=== PATIENT | female | born 1985 | race African-American/Black ===

== ENCOUNTER 2019-04-13 07:29 | Emergency (ER) | payer BC ==
--- NOTE | 2019-04-13 08:03 | EDPHYS ---
Physician Documentation [facility] Name: Boy Roque Age: 33 yrs Sex: Female : 1985 Arrival Date: 04/13/2019 Time: 07:32 Bed Waiting Private MD: ED Physician Michael Escalante HPI: 04/13 08:07 This 33 yrs old Black Female presents to ER via Ambulatory with complaints of Insect kb Bite, Allergic Reaction. 08:09 The patient presents with itching, localized swelling, redness of skin. Onset: The kb symptoms/episode began/occurred last night. Associated signs and symptoms: Pertinent positives: swelling. Possible causes: unknown insect. At home the patient or guardian has treated the symptoms with Benadryl. Severity of symptoms: At their worst the symptoms were mild in the emergency department the symptoms are unchanged. The patient has not experienced similar symptoms in the past. The patient has not recently seen a physician. Pt reports she was bit by an insect last night and had a lot of itching to area. Today the bites are more red and swollen. "I'm having an allergic reaction". Historical: - Allergies: 08:04 No Known Allergies; hb - Home Meds: 08:04 levothyroxine 112 mcg tab 1 tab once daily [Active]; hb - PMHx: 08:04 Hypertension; hb - PSHx: 08:04 None; hb - Immunization history:: Adult Immunizations up to date. - Social history:: Smoking status: Patient uses tobacco products, denies chronic smoking, but will smoke occasionally. - Ebola Screening: : No symptoms or risks identified at this time. ROS: 08:07 Constitutional: Negative for fever, chills, and weight loss, ENT: Negative for injury, kb pain, and discharge, Neck: Negative for injury, pain, and swelling, Cardiovascular: Negative for chest pain, palpitations, and edema, Respiratory: Negative for shortness of breath, cough, wheezing, and pleuritic chest pain, Abdomen/GI: Negative for abdominal pain, nausea, vomiting, diarrhea, and constipation, MS/Extremity: Negative for injury and deformity, Neuro: Negative for headache, weakness, numbness, tingling, and seizure. 08:07 Skin: Positive for erythema, swelling. Exam: 08:07 Constitutional: This is a well developed, well nourished patient who is awake, alert, kb and in no acute distress. Head/Face: Normocephalic, atraumatic. ENT: Nares patent. No nasal discharge, no septal abnormalities noted. Tympanic membranes are normal and external auditory canals are clear. Oropharynx with no redness, swelling, or masses, exudates, or evidence of obstruction, uvula midline. Mucous membranes moist. Neck: Trachea midline, no thyromegaly or masses palpated, and no cervical lymphadenopathy. Supple, full range of motion without nuchal rigidity, or vertebral point tenderness. No Meningismus. Chest/axilla: Normal chest wall appearance and motion. Nontender with no deformity. No lesions are appreciated. Cardiovascular: Regular rate and rhythm with a normal S1 and S2. No gallops, murmurs, or rubs. Normal PMI, no JVD. No pulse deficits. Respiratory: Lungs have equal breath sounds bilaterally, clear to auscultation and percussion. No rales, rhonchi or wheezes noted. No increased work of breathing, no retractions or nasal flaring. Abdomen/GI: Soft, non-tender, with normal bowel sounds. No distension or tympany. No guarding or rebound. No evidence of tenderness throughout. MS/ Extremity: Pulses equal, no cyanosis. Neurovascular intact. Full, normal range of motion. Neuro: Awake and alert, GCS 15, oriented to person, place, time, and situation. Cranial nerves II-XII grossly intact. Motor strength 5/5 in all extremities. Sensory grossly intact. Cerebellar exam normal. Normal gait. 08:07 Skin: multiple insect bites with inflammation to right upper lateral thigh. Vital Signs: 08:04 BP 136 / 89; Pulse 63; Resp 20; Temp 97.7; Pulse Ox 100% ; Pain 0/10; hb MDM: 08:01 Patient medically screened. kb 08:07 Data reviewed: vital signs, nurses notes. Data interpreted: Pulse oximetry: on room air kb is 100 %. Interpretation: normal. Counseling: I had a detailed discussion with the patient and/or guardian regarding: the historical points, exam findings, and any diagnostic results supporting the discharge/admit diagnosis, the need for outpatient follow up, a family practitioner, to return to the emergency department if symptoms worsen or persist or if there are any questions or concerns that arise at home. Administered Medications: 08:16 Drug: Pepcid 20 mg Route: PO; aa5 08:16 Follow up: Response: No adverse reaction; Medication administered at discharge. aa 08:16 Drug: predniSONE 40 mg Route: PO; aa 08:16 Follow up: Response: Medication administered at discharge. aa 08:16 Follow up: Response: No adverse reaction aa5 Disposition: 10:48 Co-signature as Attending Physician, Michael Escalante MD I agree with the assessment and samantha plan of care. Disposition: 04/13/19 08:02 Discharged to Home. Impression: Bitten or stung by nonvenomous insect and other nonvenomous arthropods. - Condition is Stable. - Discharge Instructions: Insect Bite, [id number]. - Prescriptions for Pepcid 20 mg Oral Tablet - take 1 tablet by ORAL route every 12 hours for 5 days; 10 tablet. Prednisone 20 mg Oral Tablet - take 1 tablet by ORAL route once daily for 5 days; 5 tablet. - Medication Reconciliation Form, Thank You Letter, Antibiotic Education, Prescription Opioid Use, Work release form form. - Follow up: Emergency Department; When: As needed; Reason: Worsening of condition. Follow up: Private Physician; When: 2 - 3 days; Reason: Recheck today's complaints, Continuance of care, Re-evaluation by your physician. Signatures: Lesley Moreira, FURNACE DOOR TENDER-C FURNACE DOOR TENDER-Michael Pepe MD MD cha Calderon, Audri, RN RN aa5 Leanne Parekh RN RN Corrections: (The following items were deleted from the chart) 08:17 08:02 04/13/2019 08:02 Discharged to Home. Impression: Bitten or stung by nonvenomous jessica insect and other nonvenomous arthropods. Condition is Stable. Forms are Medication Reconciliation Form, Thank You Letter, Antibiotic Education, Prescription Opioid Use. Follow up: Emergency Department; When: As needed; Reason: Worsening of condition. Follow up: Private Physician; When: 2 - 3 days; Reason: Recheck today's complaints, Continuance of care, Re-evaluation by your physician. kb
[2019-04-13] MEDS ORDERED: predniSONE 20 MG TAB ONE (08:06)
[2019-04-13] MEDS ORDERED: FAMOTIDINE 20 MG TAB ONE (08:06)
--- NOTE | 2019-04-13 08:18 | ER ---
Nurse's Notes [facility] Name: Boy Roque Age: 33 yrs Sex: Female : 1985 Arrival Date: 04/13/2019 Time: 07:32 Bed Waiting Private MD: Diagnosis: Bitten or stung by nonvenomous insect and other nonvenomous arthropods Presentation: 04/13 08:03 Presenting complaint: Insect bites to right thigh. Transition of care: patient was not hb received from another setting of care. Onset of symptoms was April 13, 2019. Risk Assessment: Do you want to hurt yourself or someone else? Patient reports no desire to harm self or others. Initial Sepsis Screen: Does the patient meet any 2 criteria? No. Patient's initial sepsis screen is negative. Does the patient have a suspected source of infection? No. Patient's initial sepsis screen is negative. Care prior to arrival: None. 08:03 Method Of Arrival: Ambulatory hb 08:03 Acuity: RIVAS 4 hb Historical: - Allergies: 08:04 No Known Allergies; hb - Home Meds: 08:04 levothyroxine 112 mcg tab 1 tab once daily [Active]; hb - PMHx: 08:04 Hypertension; hb - PSHx: 08:04 None; hb - Immunization history:: Adult Immunizations up to date. - Social history:: Smoking status: Patient uses tobacco products, denies chronic smoking, but will smoke occasionally. - Ebola Screening: : No symptoms or risks identified at this time. Screenin:10 Abuse screen: Denies threats or abuse. Nutritional screening: No deficits noted. aa5 Tuberculosis screening: No symptoms or risk factors identified. Fall Risk None identified. Assessment: 08:10 General: Appears comfortable, Behavior is calm, cooperative. Pain: Denies pain. Neuro: aa5 Level of Consciousness is awake, alert, obeys commands, Oriented to person, place, time, situation. 08:10 Cardiovascular: Heart tones S1 S2 present Rhythm is regular. Respiratory: Airway is aa5 patent Respiratory effort is even, unlabored, Respiratory pattern is regular, symmetrical, Breath sounds are clear bilaterally. GI: No signs and/or symptoms were reported involving the gastrointestinal system. : No signs and/or symptoms were reported regarding the genitourinary system. 08:10 EENT: No signs and/or symptoms were reported regarding the EENT system. Derm: Skin is aa5 dry, Skin is normal, Skin temperature is warm Multiple insect bites noted to right thigh. Musculoskeletal: Range of motion: intact in all extremities. Vital Signs: 08:04 BP 136 / 89; Pulse 63; Resp 20; Temp 97.7; Pulse Ox 100% ; Pain 0/10; hb ED Course: 07:32 Patient arrived in ED. as 08:01 Lesley Moreira [facility]-C [facility]. kb 08:01 Michael Escalante MD is Attending Physician. kb 08:04 Triage completed. hb 08:04 Arm band placed on. hb 08:10 Patient has correct armband on for positive identification. aa5 08:16 No provider procedures requiring assistance completed. Patient did not have IV access aa5 during this emergency room visit. 08:17 Neli Mccracken, RN is Primary Nurse. aa5 Administered Medications: 08:16 Drug: Pepcid 20 mg Route: PO; aa5 08:16 Follow up: Response: No adverse reaction; Medication administered at discharge. aa5 08:16 Drug: predniSONE 40 mg Route: PO; aa5 08:16 Follow up: Response: Medication administered at discharge. aa5 08:16 Follow up: Response: No adverse reaction aa5 Outcome: 08:02 Discharge ordered by MD. kb 08:16 Discharged to home ambulatory. aa5 08:16 Condition: stable 08:16 Discharge instructions given to patient, Instructed on discharge instructions, follow up and referral plans. medication usage, Demonstrated understanding of instructions, follow-up care, medications, Prescriptions given X 2. 08:17 Patient left the ED. aa5 Signatures: Lesley Moreira FNP-C FNP-Griselda Joe as Neli Mccracken, RN RN aa5 Leanne Parekh, ANNALEE RN
[2019-04-13 09:25] VITALS: BP 136/89; TEMP 97.7; O2SAT 100
== END 2019-04-13 08:17 | disposition home or self-care (01) ==
LOC: ER 07:29
DX: S70.361A Insect bite (nonvenomous), right thigh, initial encounter (principal)
CPT/HCPCS: 99283; J7512

== ENCOUNTER 2021-10-22 07:18 | Emergency (ER) | payer BC ==
--- OUTSIDE RECORDS SUMMARY | 2021-10-22 07:20 | XMS REPORT | Continuity of Care Document ---
:1985 Author Organization [facility] t Address [address] [place] [address] Dr. Crawley [address] [place] [id number] Care Team Providers Name Role Phone Unavailable Unavailable Unavailable Problems This patient has no known problems. Allergies, Adverse Reactions, Alerts This patient has no known allergies or adverse reactions. Medications This patient has no known medications. Procedures This patient has no known procedures. Encounters Start End Encounter Admission Attending Care Care Encounter Source Date/Time Date/Time Type Type Clinicians Facility Department ID 2019-01-21 2019-01-[address] 12:26:00 06:02:00 Results This patient has no known results.
[2021-10-22] MEDS ORDERED: IBUPROFEN 400 MG TAB ONE (07:43)
[2021-10-22] MEDS ORDERED: IBUPROFEN 200 MG TAB PO ONE (07:43)
[2021-10-22 07:45] LABS: Urine Blood Negative (Negative); Urine Glucose Negative (Negative); Urine Protein Negative (Negative); Urine Specific Gravity >=1.030 (1.005-1.030)
--- NOTE | 2021-10-22 08:09 | RAD REPORT ---
EXAM DESCRIPTION: CT - C Spine Wo Con - 10/22/2021 7:49 am CLINICAL HISTORY: Neck pain following trauma, radiculopathy COMPARISON: None. TECHNIQUE: Axial 2 mm thick images of the cervical spine were obtained with sagittal and coronal rec onstruction images generated and reviewed. All CT scans are performed using dose optimization technique as appropriate and may include automated exposure control or mA/KV adjustment according to patient size. FINDINGS: Cervical body height and alignment are normal. No disk space narrowing. No fracture or acu te bony abnormality. Facet joint alignment is normal. No paraspinal mass or hematoma. No gross evidence for a large disc herniation. Central canal detail is inherently limited on CT imagi ng. IMPRESSION: Negative CT cervical spine examination. CT imaging has inherent limitation in evaluating disc herniation, cord abnormality or other central c anal processes. Follow-up outpatient MRI imaging of the cervical spine could be performed if there ar e concerns for central canal process.
--- NOTE | 2021-10-22 08:29 | ER ---
Nurse's Notes [facility] Name: Boy Roque Age: 35 yrs Sex: Female : 1985 Arrival Date: 10/22/2021 Time: 07:21 Bed 23 Private MD: Diagnosis: Strain of muscle, fascia and tendon at neck level, initial encounter Presentation: 10/22 07:27 Chief complaint: Patient states: Hit top of head on Tuesday. Started having neck pain, ll1 worse since last night. Very stiff and painful. No LOC, gait steady. Coronavirus screen: Vaccine status: Patient reports receiving the 2nd dose of the covid vaccine. Client denies travel out of the [place] in the last 14 days. At this time, the client does not indicate any symptoms associated with coronavirus-19. Ebola Screen: Patient denies travel to an Ebola-affected area in the 21 days before illness onset. Initial Sepsis Screen: Does the patient meet any 2 criteria? No. Patient's initial sepsis screen is negative. Does the patient have a suspected source of infection? Yes: Bone or joint infection. Risk Assessment: Do you want to hurt yourself or someone else? Patient reports no desire to harm self or others. Onset of symptoms was October 16, 2021. 07:27 Method Of Arrival: Ambulatory ll1 07:27 Acuity: RIVAS 4 ll1 Triage Assessment: 07:30 General: Appears uncomfortable, Behavior is cooperative, appropriate for age. Pain: ll1 Complains of pain in neck Quality of pain is described as aching, Aggravated by increased activity. Musculoskeletal: Reports pain in neck. Injury Description: Head injury Bruise. Historical: - Allergies: 07:21 No Known Allergies; ll1 - PMHx: 07:21 Hypertension; ll1 - Immunization history:: Client reports receiving the 2nd dose of the Covid vaccine. - Social history:: Smoking status: Patient reports the use of cigarette tobacco products, cigars. - Family history:: not pertinent. Screenin:30 Abuse screen: Denies threats or abuse. Nutritional screening: No deficits noted. ll1 Tuberculosis screening: No symptoms or risk factors identified. Fall Risk Total Rodriguez Fall Scale indicates No Risk (0-24 pts). Assessment: 09:10 General: Appears in no apparent distress. comfortable, slender, well groomed, Behavior ph is calm, cooperative, appropriate for age. Pain: Complains of pain in neck and bilateral shoulders. Neuro: Level of Consciousness is awake, alert, obeys commands, Oriented to person, place, time, situation, Denies blurred vision dizziness, headache. Cardiovascular: No deficits noted. Derm: Skin is intact, is healthy with good turgor, Skin is pink, warm \T\ dry. Musculoskeletal: Circulation, motion, and sensation intact. Range of motion: intact in all extremities. Vital Signs: 07:27 BP 145 / 90; Pulse 65; Resp 16; Temp 98.1; Pulse Ox 100% ; Weight 60.78 kg; Height 5 ll1 ft. 4 in. (162.56 cm); Pain 8/10; 09:11 BP 132 / 78; Pulse 67; Resp 18; Temp 98.0; Pulse Ox 99% on R/A; ph 07:27 Body Mass Index 23.00 (60.78 kg, 162.56 cm) ll1 ED Course: 07:21 Patient arrived in ED. mr 07:21 Arm band placed on. ll1 07:24 Michael Escalante MD is Attending Physician. samantha 07:27 Patient placed in an exam room, on a stretcher. ll1 07:30 Triage completed. ll1 07:30 Patient has correct armband on for positive identification. Bed in low position. Call ll1 light in reach. Side rails up X 1. Cardiac monitoring not applicable on this patient. 07:32 Siri Boss, RN is Primary Nurse. ph 07:50 CT C Spine In Process Unspecified. EDMS 08:28 Brent Barros MD is Referral Physician. samantha 09:10 No provider procedures requiring assistance completed. Patient did not have IV access ph during this emergency room visit. Administered Medications: 07:45 Drug: Motrin (ibuprofen) 600 mg Route: PO; ph 09:10 Follow up: Response: No adverse reaction ph 09:05 Drug: Flexeril (cyclobenzaprine) 10 mg Route: PO; ph 09:10 Follow up: Response: No adverse reaction ph 09:05 Drug: predniSONE 40 mg Route: PO; ph 09:09 Follow up: Response: No adverse reaction ph Outcome: 08:28 Discharge ordered by . samantha 09:10 Discharged to home ambulatory, with significant other. ph 09:10 Condition: good 09:10 Discharge instructions given to patient, Instructed on discharge instructions, follow up and referral plans. medication usage, Demonstrated understanding of instructions, follow-up care, medications, Prescriptions given X 3. 09:11 Patient left the ED. ph Signatures: Dispatcher [employer] EDMichael Jaimes MD MD cha Rivera, Mary mr Siri Boss RN RN ph Lewis, Lynsay, RN RN ll1
--- NOTE | 2021-10-22 08:29 | EDPHYS ---
Physician Documentation [facility] Name: Boy Roque Age: 35 yrs Sex: Female : 1985 Arrival Date: 10/22/2021 Time: 07:21 Bed 23 Private MD: ED Physician Michael Escalante HPI: 10/22 07:53 This 35 yrs old Black Female presents to ER via Ambulatory with complaints of Neck Pain.samantha 07:53 The patient's problem is reported as neck pain. Onset: The symptoms/episode samantha began/occurred 7 day(s) ago. Duration: This was a single incident, The episode is continuous. Context: occurred at home. The symptoms are alleviated by rest, The symptoms are aggravated by standing, walking. Associated signs and symptoms: The patient has no apparent associated signs or symptoms. Severity of symptoms: At their worst the symptoms were moderate in the emergency department the symptoms are unchanged. Patient's baseline: Neuro: alert and fully oriented. The patient has not experienced similar symptoms in the past. Historical: - Allergies: 07:21 No Known Allergies; ll1 - PMHx: 07:21 Hypertension; ll1 - Immunization history:: Client reports receiving the 2nd dose of the Covid vaccine. - Social history:: Smoking status: Patient reports the use of cigarette tobacco products, cigars. - Family history:: not pertinent. ROS: 07:53 Constitutional: Negative for fever, chills, and weight loss, Eyes: Negative for injury, samantha pain, redness, and discharge, ENT: Negative for injury, pain, and discharge, Neck: Negative for injury, pain, and swelling, Cardiovascular: Negative for chest pain, palpitations, and edema, Respiratory: Negative for shortness of breath, cough, wheezing, and pleuritic chest pain, Abdomen/GI: Negative for abdominal pain, nausea, vomiting, diarrhea, and constipation, Back: Negative for injury and pain, : Negative for injury, bleeding, discharge, and swelling, MS/Extremity: Negative for injury and deformity, Skin: Negative for injury, rash, and discoloration, Neuro: Negative for headache, weakness, numbness, tingling, and seizure, Psych: Negative for depression, anxiety, suicide ideation, homicidal ideation, and hallucinations, Allergy/Immunology: Negative for hives, rash, and allergies, Endocrine: Negative for neck swelling, polydipsia, polyuria, polyphagia, and marked weight changes, Hematologic/Lymphatic: Negative for swollen nodes, abnormal bleeding, and unusual bruising. Exam: 07:53 Constitutional: This is a well developed, well nourished patient who is awake, alert, samantha and in no acute distress. Head/Face: Normocephalic, atraumatic. Eyes: Pupils equal round and reactive to light, extra-ocular motions intact. Lids and lashes normal. Conjunctiva and sclera are non-icteric and not injected. Cornea within normal limits. Periorbital areas with no swelling, redness, or edema. ENT: Nares patent. No nasal discharge, no septal abnormalities noted. Tympanic membranes are normal and external auditory canals are clear. Oropharynx with no redness, swelling, or masses, exudates, or evidence of obstruction, uvula midline. Mucous membranes moist. Chest/axilla: Normal chest wall appearance and motion. Nontender with no deformity. No lesions are appreciated. Cardiovascular: Regular rate and rhythm with a normal S1 and S2. No gallops, murmurs, or rubs. Normal PMI, no JVD. No pulse deficits. Respiratory: Lungs have equal breath sounds bilaterally, clear to auscultation and percussion. No rales, rhonchi or wheezes noted. No increased work of breathing, no retractions or nasal flaring. Abdomen/GI: Soft, non-tender, with normal bowel sounds. No distension or tympany. No guarding or rebound. No evidence of tenderness throughout. Back: No spinal tenderness. No costovertebral tenderness. Full range of motion. Skin: Warm, dry with normal turgor. Normal color with no rashes, no lesions, and no evidence of cellulitis. MS/ Extremity: Pulses equal, no cyanosis. Neurovascular intact. Full, normal range of motion. Neuro: Awake and alert, GCS 15, oriented to person, place, time, and situation. Cranial nerves II-XII grossly intact. Motor strength 5/5 in all extremities. Sensory grossly intact. Cerebellar exam normal. Normal gait. Psych: Awake, alert, with orientation to person, place and time. Behavior, mood, and affect are within normal limits. 07:53 Neck: External neck: is normal, no acute changes, C-spine: appears grossly normal, no acute changes, Thyroid: appears normal, no acute changes, Trachea: is midline with no obvious abnormalities, no acute changes, ROM/movement: limited range of motion, that is mild, in any direction, Meningeal signs: are not present, Kernig's sign is negative, Brudzinski's sign is negative, nuchal rigidity, is not appreciated, Lymph nodes: no appreciated lymphadenopathy. Vital Signs: 07:27 BP 145 / 90; Pulse 65; Resp 16; Temp 98.1; Pulse Ox 100% ; Weight 60.78 kg; Height 5 ll1 ft. 4 in. (162.56 cm); Pain 8/10; 09:11 BP 132 / 78; Pulse 67; Resp 18; Temp 98.0; Pulse Ox 99% on R/A; ph 07:27 Body Mass Index 23.00 (60.78 kg, 162.56 cm) ll1 MDM: 07:26 Patient medically screened. samantha 07:55 Data reviewed: vital signs, nurses notes, lab test result(s), radiologic studies, CT samantha scan. Data interpreted: panel monitor: not applicable for this patient encounter. rate is 65 beats/min. Test interpretation: by ED physician or midlevel provider:. Counseling: I had a detailed discussion with the patient and/or guardian regarding: the historical points, exam findings, and any diagnostic results supporting the discharge/admit diagnosis, lab results, radiology results, the need for outpatient follow up, for definitive care, a family practitioner, a neurologist. 10/22 07:46 Order name: Urine Dipstick-Ancillary; Complete Time: 08:25 EDMS 10/22 07:50 Order name: Urine --Ancillary (enter results) eb 10/22 07:34 Order name: CT C Spine; Complete Time: 08:25 samantha 10/22 07:34 Order name: Urine Dipstick-Ancillary (obtain specimen); Complete Time: 07:54 samantha 10/22 07:34 Order name: Urine Test (obtain specimen); Complete Time: 07:54 samantha Administered Medications: 07:45 Drug: Motrin (ibuprofen) 600 mg Route: PO; ph 09:10 Follow up: Response: No adverse reaction ph 09:05 Drug: Flexeril (cyclobenzaprine) 10 mg Route: PO; ph 09:10 Follow up: Response: No adverse reaction ph 09:05 Drug: predniSONE 40 mg Route: PO; ph 09:09 Follow up: Response: No adverse reaction ph Disposition Summary: 10/22/21 08:28 Discharge Ordered Location: Home samantha Problem: new samantha Symptoms: have improved samantha Condition: Stable samantha Diagnosis - Strain of muscle, fascia and tendon at neck level, initial encounter samantha Followup: samantha - With: Private Physician - When: 2 - 3 days - Reason: Recheck today's complaints, Continuance of care, Re-evaluation by your physician Followup: samantha - With: Brent Barros MD - When: 2 - 3 days - Reason: Recheck today's complaints, Re-evaluation by your physician Discharge Instructions: - Discharge Summary Sheet samantha - Muscle Strain samantha - Neck Contusion samantha - Muscle Strain, [id number] samantha - Neck Contusion, [id number] samantha Forms: - Medication Reconciliation Form samantha - Thank You Letter samantha - Antibiotic Education samantha - Prescription Opioid Use samantha - Work release form eb - Family Work Release ph Prescriptions: - Medrol (Tevin) 4 mg Oral Tablets, Dose Pack - take 1 tablet by ORAL route as directed - follow package instructions; 1 samantha packet; Refills: 0, Product Selection Permitted - Motrin IB 200 mg Oral Tablet - take 3 tablet by ORAL route every 6 hours As needed as needed with food; 40 samantha tablet; Refills: 0, Product Selection Permitted - Cyclobenzaprine 5 mg Oral Tablet - take 1 tablet by ORAL route 3 times per day As needed; 15 tablet; Refills: 0, samantha Product Selection Permitted Signatures: Dispatcher [employer] Michael Magallanes MD MD cha Hall, Patricia RN RN Jacqueline Yen RN RN ll1
[2021-10-22] MEDS ORDERED: CYCLOBENZAPRINE 10 MG TAB ONE (09:04)
[2021-10-22] MEDS ORDERED: predniSONE 20 MG TAB ONE (09:04)
[2021-10-22 12:01] VITALS: BP 132/78; TEMP 98; O2SAT 99
== END 2021-10-22 09:11 | disposition home or self-care (01) ==
LOC: ER 07:18
DX: S16.1XXA Strain of muscle, fascia and tendon at neck level, initial encounter (principal); I10 Essential (primary) hypertension; F17.290 Nicotine dependence, other tobacco product, uncomplicated
CPT/HCPCS: 81025; 81003; 72125; 99283; J7512

== ENCOUNTER 2022-03-03 10:01 | Emergency (ER) | payer BC ==
--- OUTSIDE RECORDS SUMMARY | 2022-03-03 10:04 | XMS REPORT | Continuity of Care Document ---
:1985 Author Organization [facility] t Address [address] [place] [address] Dr. Crawley [address] [place] [id number] Care Team Providers Name Role Phone Unavailable [...] Clinicians Facility Department ID 2019-01-21 2019-01-[address] 12:26:00 06:02:00 Results This patient has no known results.
[2022-03-03] MEDS ORDERED: ONDANSETRON 4 MG/2 ML VIAL ONE (12:41)
[2022-03-03] MEDS ORDERED: FAMOTIDINE 20 MG/2 ML VIAL IV ONE (12:42)
[2022-03-03] MEDS ORDERED: NA CHLORIDE 0.9% 1,000 ML ONE (12:42)
[2022-03-03 12:44] LABS: Absolute Lymphocytes (CBC) 0.3 K/uL (0.7-4.9); Hematocrit 36.9 % (36.0-45.0); MCV 91.6 fL (80-100); MPV 9.4 fL (7.6-11.3); RBC Red Blood Cell Count 4.03 M/uL (3.86-4.86)
[2022-03-03 13:15] LABS: Albumin 3.5 g/dL (3.4-5.0); Bilirubin Total 0.5 mg/dL (0.2-1.0); Potassium 3.4 mmol/L (3.5-5.1); Protein, Total 7.3 g/dL (6.4-8.2)
[2022-03-03 13:32] LABS: Blood Morphology Comment NOT SEEN (NOT SEEN); Platelet Estimate ADEQ; White Blood Cell Scan OK (OK)
[2022-03-03 13:34] LABS: Urine Blood Negative (Negative); Urine Glucose Negative (Negative); Urine Protein Negative (Negative); Urine pH 5.5 (5.0-7.0)
--- NOTE | 2022-03-03 14:02 | RAD REPORT ---
EXAM DESCRIPTION: CTAbdomen Pelvis W Contrast - 03/03/2022 1:47 pm CLINICAL HISTORY: Abdominal pain, acute, nonlocalized COMPARISON: No comparisons TECHNIQUE: CT of the abdomen and pelvis was performed. All CT scans are performed using dose optimization technique as appropriate and may include automated exposure control or mA/KV adjustment according to patient size. FINDINGS: Lower chest: No acute abnormality. Liver: No acute abnormality or suspicious lesions. Biliary: No biliary ductal dilatation. Stomach: No significant focal abnormality. Duodenum: No significant focal abnormality. Pancreas: No significant abnormality. Spleen: No significant abnormality. Adrenal: No suspicious lesions. Kidney/ureter: No hydronephrosis. No renal calculi. Left lower pole renal cyst. Retroperitoneum: No retroperitoneal adenopathy. Vascular: No aneurysm. Bowel: No significant focal abnormality. Normal appendix. Peritoneum: Pelvic free fluid. Bladder: Grossly unremarkable. Reproductive: No adnexal masses. Bones: No acute fracture. Other: n/a IMPRESSION: No acute intra-abdominal or pelvic finding. The appendix is within normal limits. No uri nary tract calculi. Pelvic free fluid which is likely physiologic.
--- NOTE | 2022-03-03 14:08 | ER ---
Nurse's Notes [facility] Name: Boy Roque Age: 36 yrs Sex: Female : 1985 Arrival Date: 03/03/2022 Time: 10:02 Bed 12 Private MD: Diagnosis: Abdominal pain, Generalized;Upper abdominal pain, unspecified;Shortness of breath Presentation: 03/03 10:18 Chief complaint: Patient states: she is having severe abdominal pain and feels like she ap3 is having a difficult time breathing. patient also has dry cough that began yesterday. patient also complains of nausea. Coronavirus screen: At this time, the client does not indicate any symptoms associated with coronavirus-19. Ebola Screen: No symptoms or risks identified at this time. Initial Sepsis Screen:. Risk Assessment: Do you want to hurt yourself or someone else? Patient reports no desire to harm self or others. Onset of symptoms was March 02, 2022. 10:18 Method Of Arrival: Ambulatory ap3 10:20 Initial Sepsis Screen: Does the patient meet any 2 criteria? No. Patient's initial ap3 sepsis screen is negative. Does the patient have a suspected source of infection? No. Patient's initial sepsis screen is negative. 10:20 Acuity: RIVAS 3 ap3 Triage Assessment: 10:21 General: Appears distressed, ill, Behavior is anxious, restless. Pain: Complains of ap3 pain in abdomen Quality of pain is described as crampy. Neuro: Level of Consciousness is awake, alert, obeys commands, Oriented to person, place, time, situation. Cardiovascular: Patient's skin is warm and dry. Respiratory: Reports shortness of breath Onset: The symptoms/episode began/occurred yesterday, the patient has mild shortness of breath. Respiratory: Airway is patent Respiratory effort is even, unlabored. 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 - Social history:: Smoking status: Patient reports the use of cigarette tobacco products, cigars. Screenin:23 Abuse screen: Denies threats or abuse. Nutritional screening: No deficits noted. ap3 Tuberculosis screening: No symptoms or risk factors identified. 14:34 Fall Risk None identified. kb3 Assessment: 13:19 General: Received care of pt from previous RN. Pt is AAO x4, states intermittent kb3 abdominal pain and nausea that began yesterday but was worse this morning. Pt reports that the pain causes her to feel short of breath.. 13:20 General:. Cardiovascular: No deficits noted. Rhythm is regular. Respiratory: No kb3 deficits noted. Breath sounds are clear bilaterally. Vital Signs: 10:20 BP 151 / 98; Pulse 117; Resp 18; Temp 99.0; Pulse Ox 100% ; Weight 62.14 kg; Height 5 ap3 ft. 5 in. (165.10 cm); 13:15 BP 128 / 72; Pulse 92; Resp 18; Pulse Ox 100% ; Pain 2/10; kb3 14:06 BP 127 / 87; Pulse 85; Resp 18; Pulse Ox 100% ; Pain 0/10; kb3 10:20 Body Mass Index 22.80 (62.14 kg, 165.10 cm) ap3 ED Course: 10:02 Patient arrived in ED. am2 10:09 Matt Phillips MD is Attending Physician. kdr 10:21 Triage completed. ap3 10:23 Arm band placed on right wrist. ap3 10:23 Patient has correct armband on for positive identification. Adult w/ patient. ap3 12:00 Martha Fonseca, RN is Primary Nurse. kb3 12:07 COVID swab sent to lab. Flu and/or RSV swab sent to lab. jl7 12:31 Door closed. Noise minimized. Warm blanket given. mb7 12:31 Inserted saline lock: 20 gauge in right antecubital area, using aseptic technique. mb7 Blood collected. 12:31 CBC with Diff Sent. mb7 12:31 CMP Sent. mb7 12:31 Lipase Sent. mb7 13:[address] kb3 13:49 CT Abd/Pelvis - IV Contrast Only In Process Unspecified. EDMS 13:[address] back [address]. kb3 14:33 No provider procedures requiring assistance completed. IV discontinued, intact, kb3 bleeding controlled, No redness/swelling at site. Administered Medications: 12:30 Drug: NS 0.9% 1000 ml Route: IV; Rate: 1 bolus; Site: right antecubital; kb3 13:26 Follow up: Response: No adverse reaction; IV Status: Completed infusion; IV Intake: kb3 1000ml 12:30 Drug: Pepcid (famotidine) 20 mg Route: IVP; Site: right antecubital; kb3 13:27 Follow up: Response: No adverse reaction; Pain is decreased kb3 12:30 Drug: Zofran (Ondansetron) 4 mg Route: IVP; Site: right antecubital; kb3 13:27 Follow up: Response: No adverse reaction; Nausea is decreased kb3 Medication: 14:34 VIS not applicable for this client. kb3 Intake: 13:26 IV: 1000ml; Total: 1000ml. kb3 Outcome: 14:08 Discharge ordered by . kdr 14:33 Discharged to home ambulatory. kb3 14:33 Condition: improved 14:33 Discharge instructions given to patient, Instructed on discharge instructions, follow up and referral plans. medication usage, Demonstrated understanding of instructions, follow-up care, medications, Prescriptions given X 3. 14:35 Patient left the ED. kb3 Signatures: Dispatcher [employer] EDMS Matt Phillips MD MD kdr Jameson Mccrary RN RN jl7 Radha Brown Amanda RN RN ap3 Theodora Miller mb7 Martha Fonseca, RN RN kb3 Corrections: (The following items were deleted from the chart) 13:22 13:19 General: Received care of pt from previous RN. PT is AAO x4, states abdominal kb3 pain and nausea that began yesterday but was worse this morning. kb3
--- NOTE | 2022-03-03 14:09 | EDPHYS ---
Physician Documentation [facility] Name: Boy Roque Age: 36 yrs Sex: Female : 1985 Arrival Date: 03/03/2022 Time: 10:02 Bed 12 Private MD: ED Physician Matt Phillips HPI: 03/03 13:27 This 36 yrs old Black Female presents to ER via Ambulatory with complaints of Shortness kdr Of Breath, Abdominal Pain. 13:27 The patient has been having abdominal pain and difficulty breathing that started kdr yesterday. The difficulty breathing seems to be secondary to her pain in her upper abdomen. She has not had this before. She also has a dry cough that began yesterday as well she is also had some mild nausea and vomited twice today. Patient is nonacute and nonemergent appearing at this time she does appear mildly uncomfortable. Onset: The symptoms/episode began/occurred yesterday. Severity of symptoms: At their worst the symptoms were mild moderate just prior to arrival, in the emergency department the symptoms are unchanged. The patient has not experienced similar symptoms in the past. The patient has not recently seen a physician. 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 - Social history:: Smoking status: Patient reports the use of cigarette tobacco products, cigars. ROS: 13:27 Constitutional: Negative for fever, chills, and weight loss, Eyes: Negative for injury, kdr pain, redness, and discharge, ENT: Negative for injury, pain, and discharge, Neck: Negative for injury, pain, and swelling, Cardiovascular: Negative for chest pain, palpitations, and edema, Back: Negative for injury and pain, : Negative for injury, bleeding, discharge, and swelling, MS/Extremity: Negative for injury and deformity, Skin: Negative for injury, rash, and discoloration, Neuro: Negative for headache, weakness, numbness, tingling, and seizure activity. Psych: Negative for depression, anxiety, suicide ideation, homicidal ideation, and hallucinations, Allergy/Immunology: Negative for hives, rash, and allergies, Endocrine: Negative for neck swelling, polydipsia, polyuria, polyphagia, and marked weight changes, Hematologic/Lymphatic: Negative for swollen nodes, abnormal bleeding, and unusual bruising. 13:27 Respiratory: Positive for cough, with no reported sputum, shortness of breath, Negative for hemoptysis, orthopnea. Exam: 13:27 Constitutional: This is a well developed, well nourished patient who is awake, alert, kdr and in no acute distress. Head/Face: Normocephalic, atraumatic. Eyes: Pupils equal round and reactive to light, extra-ocular motions intact. Lids and lashes normal. Conjunctiva and sclera are non-icteric and not injected. Cornea within normal limits. Periorbital areas with no swelling, redness, or edema. Neck: Trachea midline, no thyromegaly or masses palpated, and no cervical lymphadenopathy. Supple, full range of motion without nuchal rigidity, or vertebral point tenderness. No Meningismus. Chest/axilla: Normal chest wall appearance and motion. Nontender with no deformity. No lesions are appreciated. Cardiovascular: Regular rate and rhythm with a normal S1 and S2. No gallops, murmurs, or rubs. Normal PMI, no JVD. No pulse deficits. Respiratory: Lungs have equal breath sounds bilaterally, clear to auscultation and percussion. No rales, rhonchi or wheezes noted. No increased work of breathing, no retractions or nasal flaring. Abdomen/GI: Soft, non-tender, with normal bowel sounds. No distension or tympany. No guarding or rebound. No evidence of tenderness throughout. Back: No spinal tenderness. No costovertebral tenderness. Full range of motion. Skin: Warm, dry with normal turgor. Normal color with no rashes, no lesions, and no evidence of cellulitis. MS/ Extremity: Pulses equal, no cyanosis. Neurovascular intact. Full, normal range of motion. Neuro: Awake and alert, GCS 15, oriented to person, place, time, and situation. Cranial nerves II-XII grossly intact. Motor strength 5/5 in all extremities. Sensory grossly intact. Cerebellar exam normal. Normal gait. Psych: Awake, alert, with orientation to person, place and time. Behavior, mood, and affect are within normal limits. Vital Signs: 10:20 BP 151 / 98; Pulse 117; Resp 18; Temp 99.0; Pulse Ox 100% ; Weight 62.14 kg; Height 5 ap3 ft. 5 in. (165.10 cm); 13:15 BP 128 / 72; Pulse 92; Resp 18; Pulse Ox 100% ; Pain 2/10; kb3 14:06 BP 127 / 87; Pulse 85; Resp 18; Pulse Ox 100% ; Pain 0/10; kb3 10:20 Body Mass Index 22.80 (62.14 kg, 165.10 cm) ap3 MDM: 14:08 Patient medically screened. kdr 17:55 Data reviewed: vital signs, nurses notes, lab test result(s), EKG, radiologic studies. kdr Counseling: I had a detailed discussion with the patient and/or guardian regarding: the historical points, exam findings, and any diagnostic results supporting the discharge/admit diagnosis, lab results, radiology results, the need for outpatient follow up. 03/03 10:23 Order name: Flu; Complete Time: 12:05 ap3 03/03 10:40 Order name: SARS-COV-2 RT PCR; Complete Time: 12:05 EDMS 03/03 12:13 Order name: CBC with Diff; Complete Time: 13:47 kdr 03/03 12:13 Order name: CMP; Complete Time: 13:19 kdr 03/03 12:13 Order name: Lipase; Complete Time: 13:19 kdr 03/03 12:13 Order name: CT Abd/Pelvis - IV Contrast Only; Complete Time: 14:06 kdr 03/03 12:13 Order name: IV Saline Lock; Complete Time: 12:31 kdr 03/03 12:47 Order name: CBC Smear Scan; Complete Time: 13:47 EDMS 03/03 13:34 Order name: Urine --Ancillary (enter results); Complete Time: 14:06 bd 03/03 13:34 Order name: Urine Dipstick-Ancillary; Complete Time: 13:47 EDMS 03/03 12:13 Order name: Labs collected and sent; Complete Time: 12:31 kdr 03/03 13:29 Order name: Urine Test (obtain specimen); Complete Time: 13:29 kb3 Administered Medications: 12:30 Drug: NS 0.9% 1000 ml Route: IV; Rate: 1 bolus; Site: right antecubital; kb3 13:26 Follow up: Response: No adverse reaction; IV Status: Completed infusion; IV Intake: kb3 1000ml 12:30 Drug: Pepcid (famotidine) 20 mg Route: IVP; Site: right antecubital; kb3 13:27 Follow up: Response: No adverse reaction; Pain is decreased kb3 12:30 Drug: Zofran (Ondansetron) 4 mg Route: IVP; Site: right antecubital; kb3 13:27 Follow up: Response: No adverse reaction; Nausea is decreased kb3 Disposition Summary: 03/03/22 14:08 Discharge Ordered Location: Home kdr Problem: new kdr Symptoms: have improved kdr Condition: Stable kdr Diagnosis - Abdominal pain, Generalized kdr - Upper abdominal pain, unspecified kdr - Shortness of breath kdr Followup: kdr - With: Private Physician - When: 2 - 3 days - Reason: If symptoms return, Further diagnostic work-up, Recheck today's complaints, Continuance of care, Re-evaluation by your physician Discharge Instructions: - Discharge Summary Sheet kdr - Shortness of Breath, Adult, [id number] kdr - Abdominal Pain, Adult, [id number] kdr Forms: - Medication Reconciliation Form kdr - Thank You Letter kdr - Work release form kb3 Prescriptions: - Ibuprofen 600 mg Oral Tablet - take 1 tablet by ORAL route every 6 hours As needed take with food; 30 tablet; kdr Refills: 0, Product Selection Permitted - Zofran 4 mg Oral Tablet - take 1 tablet by ORAL route every 4-6 hours As needed; 12 tablet; Refills: 0, kdr Product Selection Permitted - Pepcid 20 mg Oral Tablet - take 1 tablet by ORAL route once daily As needed; 10 tablet; Refills: 0, kdr Product Selection Permitted Signatures: Dispatcher [employer] EDMS Matt Phillips MD MD kdr Prokisch, Amanda, RN RN ap3 Martha Fonseca RN RN kb3 Corrections: (The following items were deleted from the chart) 10:39 10:23 COVID,FLU,RSV CPL+BRZ ordered. EDMS EDMS
[2022-03-03 15:09] VITALS: TEMP 99; O2SAT 100
[2022-03-03 15:13] VITALS: BP 127/87
== END 2022-03-03 14:35 | disposition home or self-care (01) ==
LOC: ER 10:01
DX: R06.02 Shortness of breath (principal); R10.84 Generalized abdominal pain; R10.10 Upper abdominal pain, unspecified; I10 Essential (primary) hypertension; E03.9 Hypothyroidism, unspecified; F17.290 Nicotine dependence, other tobacco product, uncomplicated; Z20.822 Contact with and (suspected) exposure to COVID-19
CPT/HCPCS: 85025; 36415; 81025; 81003; 83690; 80053; 87804 ×2; 74177; U0003; Q9967; J7030; J2405

== ENCOUNTER 2022-03-13 21:51 | Emergency (ER) | payer BC ==
--- OUTSIDE RECORDS SUMMARY | 2022-03-13 21:54 | XMS REPORT | Continuity of Care Document ---
:1985 Author Organization [facility] t Address [address] [place] [address] Dr. Crawley [address] [place] [id number] Care Team Providers Name Role Phone Unavailable [...] Clinicians Facility Department ID 2019-01-21 2019-01-[address] 12:26:00 06:02:00 Results This patient has no known results.
[2022-03-13] MEDS ORDERED: predniSONE 20 MG TAB ONE (22:24)
[2022-03-13] MEDS ORDERED: FAMOTIDINE 20 MG TAB ONE (22:24)
--- NOTE | 2022-03-13 22:25 | ER ---
Nurse's Notes 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 The swelling in my hands seems to be getting worse and moving up my arm. I have been taking Benadryl, putting cortisone cream on it and icing it.". Coronavirus screen: Vaccine status: Patient reports receiving the 2nd dose of the covid vaccine. Avalara. Ebola Screen: Patient negative for fever greater than or equal to 101.5 degrees Fahrenheit, and additional compatible Ebola Virus Disease symptoms Patient denies exposure to infectious person. Patient denies travel to an Ebola-affected area in the 21 days before illness onset. Onset: The symptoms/episode began/occurred 2 day(s) ago. Anaphylaxis evaluation, no signs or symptoms of anaphylaxis were noted. Initial Sepsis Screen: Does the patient meet any 2 criteria? No. Patient's initial sepsis screen is negative. Does the patient have a suspected source of infection? No. Patient's initial sepsis screen is negative. Initial Sepsis Screen: Does the patient meet any 2 criteria?. Risk Assessment: Do you want to hurt yourself or someone else? Patient reports no desire to harm self or others. Onset of symptoms was March 11, 2022. 21:59 Method Of Arrival: Ambulatory tw5 21:59 Acuity: RIVAS 4 tw5 Triage Assessment: 22:01 General: Appears in no apparent distress. Behavior is calm, cooperative, appropriate tw5 for age. Pain: Pain currently is 3 out of 10 on a pain scale. Musculoskeletal: Swelling present in right hand. 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 - Social history:: Smoking status: Patient reports the use of cigarette tobacco products, Black and mild. Screenin:10 Abuse screen: Denies threats or abuse. Nutritional screening: No deficits noted. ja4 Tuberculosis screening: No symptoms or risk factors identified. Fall Risk None identified. Assessment: 22:10 General: Appears uncomfortable, Behavior is calm, cooperative, appropriate for age. ja4 Pain: Denies pain. Respiratory: No deficits noted. Musculoskeletal: Swelling present in right hand. Vital Signs: 21:59 BP 117 / 84; Pulse 73; Resp 18; Temp 98.4(O); Pulse Ox 100% on R/A; Weight 61.23 kg; tw5 Height 5 ft. 6 in. (167.64 cm); Pain 3/10; 21:59 Body Mass Index 21.79 (61.23 kg, 167.64 cm) tw5 ED Course: 21:55 Patient arrived in ED. bp1 22:01 Triage completed. tw5 22:01 Arm band placed on. tw5 22:07 Lesley Moreira FNP-C [facility]. kb 22:07 Michael Escalante MD is Attending Physician. kb 22:08 Eddie Delong, ANNALEE is Primary Nurse. ja4 22:10 Bed in low position. Call light in reach. Adult w/ patient. ja4 22:10 No provider procedures requiring assistance completed. ja4 Administered Medications: 22:16 Drug: predniSONE 40 mg Route: PO; ja4 22:16 Drug: Pepcid (famotidine) 20 mg Route: PO; ja4 Medication: 22:10 VIS not applicable for this client. ja4 Outcome: 22:25 Discharge ordered by . kb 22:34 Discharged to home ambulatory. ja4 22:34 Condition: good 22:34 Discharge instructions given to patient, Instructed on discharge instructions, medication usage, Demonstrated understanding of instructions, follow-up care, medications, Prescriptions given X 2. 22:35 Patient left the ED. ja4 Signatures: Lesley Moreira FNP-C FNP-Ckb [place], Brittany bp1 Lorna Weller tw5 Eddie Delong, RN RN ja4
--- NOTE | 2022-03-13 22:25 | EDPHYS ---
[facility] Name: Boy Roque Age: 36 yrs Sex: Female : 1985 Arrival Date: 03/13/2022 Time: 21:55 Bed 15 Private MD: ED Physician Michael Escalante HPI: 03/13 22:23 This 36 yrs old Black Female presents to ER via Ambulatory with complaints of Allergic kb Reaction. 22:23 The patient presents with itching, localized swelling. Onset: The symptoms/episode kb began/occurred 2 day(s) ago. Associated signs and symptoms: Pertinent positives: swelling. Possible causes: yellow jackets. At home the patient or guardian has treated the symptoms with Benadryl. Severity of symptoms: At their worst the symptoms were moderate in the emergency department the symptoms are unchanged. The patient has not experienced similar symptoms in the past. The patient has not recently seen a physician. Pt reports she was stung by several yellow jackets on right hand 2 days ago. Has had swelling and itching to right hand since then. 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 - Social history:: Smoking status: Patient reports the use of cigarette tobacco products, Black and mild. ROS: 22:23 Constitutional: Negative for fever, chills, and weight loss. kb 22:23 Skin: Positive for swelling, of the right hand. 22:23 All other systems are negative. Exam: 22:23 Constitutional: This is a well developed, well nourished patient who is awake, alert, kb and in no acute distress. Head/Face: Normocephalic, atraumatic. ENT: Moist Mucous membranes Cardiovascular: Regular rate and rhythm with a normal S1 and S2. No gallops, murmurs, or rubs. No pulse deficits. Respiratory: Respirations even and unlabored. No increased work of breathing. Talking in full sentences Abdomen/GI: Soft, non-tender. No distention MS/ Extremity: Pulses equal, no cyanosis. Neurovascular intact. Full, normal range of motion. Neuro: Awake and alert, GCS 15, oriented to person, place, time, and situation. Moves all extremities. Normal gait. Psych: Awake, alert, with orientation to person, place and time. Behavior, mood, and affect are within normal limits. 22:23 Skin: Appearance: normal except for affected area, swelling, noted on the right hand, that are moderate. Vital Signs: 21:59 BP 117 / 84; Pulse 73; Resp 18; Temp 98.4(O); Pulse Ox 100% on R/A; Weight 61.23 kg; tw5 Height 5 ft. 6 in. (167.64 cm); Pain 3/10; 21:59 Body Mass Index 21.79 (61.23 kg, 167.64 cm) tw5 MDM: 22:07 Patient medically screened. kb 22:22 Data reviewed: vital signs, nurses notes. Data interpreted: Pulse oximetry: on room air kb is 100 %. Interpretation: normal. Counseling: I had a detailed discussion with the patient and/or guardian regarding: the historical points, exam findings, and any diagnostic results supporting the discharge/admit diagnosis, the need for outpatient follow up, a family practitioner, to return to the emergency department if symptoms worsen or persist or if there are any questions or concerns that arise at home. Administered Medications: 22:16 Drug: predniSONE 40 mg Route: PO; ja4 22:16 Drug: Pepcid (famotidine) 20 mg Route: PO; ja4 Disposition Summary: 03/13/22 22:25 Discharge Ordered Location: Home kb Condition: Stable kb Diagnosis - Allergy to jellow jacket kb - Allergy to yellow jacket kb Followup: kb - With: Emergency Department - When: As needed - Reason: Worsening of condition Followup: kb - With: Private Physician - When: 2 - 3 days - Reason: Recheck today's complaints, Continuance of care, Re-evaluation by your physician Discharge Instructions: - Discharge Summary Sheet kb - Insect Bite, Adult, [id number] kb - Allergies, Adult, [id number] kb Forms: - Medication Reconciliation Form kb - Thank You Letter kb - Antibiotic Education kb - Prescription Opioid Use kb Prescriptions: - Pepcid 20 mg Oral Tablet - take 1 tablet by ORAL route every 12 hours for 5 days; 10 tablet; Refills: 0, kb Product Selection Permitted - Prednisone 20 mg Oral Tablet - take 1 tablet by ORAL route once daily for 5 days; 5 tablet; Refills: 0, kb Product Selection Permitted Signatures: Lesley Moreira FNP-C FNP-Ckb Wood, Tiffany tw5 Eddie Delong RN RN ja4
[2022-03-13 23:30] VITALS: BP 117/84; TEMP 98.4; O2SAT 100
== END 2022-03-13 22:35 | disposition home or self-care (01) ==
LOC: ER 21:51
DX: R22.31 Localized swelling, mass and lump, right upper limb (principal); L29.9 Pruritus, unspecified; Z91.038 Other insect allergy status; I10 Essential (primary) hypertension; E03.9 Hypothyroidism, unspecified; Z72.0 Tobacco use
CPT/HCPCS: 99283; J7512

== ENCOUNTER 2023-03-23 12:52 | Emergency (ER) | payer BC ==
--- OUTSIDE RECORDS SUMMARY | 2023-03-23 12:56 | XMS REPORT | Continuity of Care Document ---
:1985 Author Organization [facility] t Address [address] [place] [address] Care Team Providers Name Role Phone Sharan Ortiz Primary Care Physician [facility] Attending Clinician Unavailable Unknown, Attending Attending Clinician Unavailable UNKNOWN, ATTENDING Attending Clinician Unavailable Rudy Virk Attending Clinician Payers Payer Name Policy Type Policy Number Effective Date Expiration Date S ource Problems This patient has no known problems. Allergies, Adverse Reactions, Alerts Allergy Allergy Status Severity Reaction(s) Onset Inactive Treating Comm ents Source Name Type Date Date Clinician NO KNOWN Drug Active Univers ALLERGIE Class ity of [facility] Social History Social Habit Start Date Stop Date Quantity Comments Source Gender identity [facility] Sexual orientation [facility] At [birth year] [facility] Smoking Status Start Date Stop Date Source Tobacco smoking consumption [facility] Branch Medications Ordered Filled Start Stop Current Ordering Indication Dosage Frequency Signature Comments Components Source Medication Medication Date Date Medication? Clinician (SIG) Name Name Cholecalcif 2022-0 Yes TAKE 1 Univ ers luis, 7-28 CAPSULE BY ity of Vitamin D3, 00:00: MOUTH [place] 1,250 mcg 00 EVERY 10 Medica l (50,000 DAYS Branch unit) capsule Cholecalcif 2022-0 Yes TAKE 1 Univ ers luis, 7-28 CAPSULE BY ity of Vitamin D3, 00:00: MOUTH [place] 1,250 mcg 00 EVERY 10 Medica l (50,000 DAYS Branch unit) capsule UNITHROID Yes TAKE 1 Univer s 112 mcg 7-27 TABLET BY ity of tablet 00:00: MOUTH 00 DAILY IN [facility] MORNING ON AN EMPTY STOMACH ramipriL 5 2022-0 Yes 5mg Take 1 Unive rs mg capsule 7-27 capsule by ity of 00:00: mouth in [place] [facility] morning. Branch UNITHROID Yes TAKE 1 Univer s 112 mcg 7-27 TABLET BY ity of tablet 00:00: MOUTH 00 DAILY IN [facility] MORNING ON AN EMPTY STOMACH ramipriL 5 2022-0 Yes 5mg Take 1 Unive rs mg capsule 7-27 capsule by ity of 00:00: mouth in [place] [facility] morning. [place] Vital Signs Vital Name Observation Time Observation Value Comments Source Systolic blood 2023-03-23 17:26:00 120 mm[Hg] Univer sity of pressure [facility] Diastolic blood 2023-03-23 17:26:00 82 mm[Hg] Unive rsity of pressure [facility] Heart rate 2023-03-23 17:26:00 73 /min [facility] Body temperature 2023-03-23 17:26:00 37.06 [facility] Respiratory rate 2023-03-23 17:26:00 18 /min [facility] Body height 2023-03-23 17:26:00 162.6 cm [facility] Body weight 2023-03-23 17:26:00 58.832 kg [facility] BMI 2023-03-23 17:26:00 22.26 kg/m2 [facility] Oxygen saturation in 2023-03-23 17:26:00 99 /min [facility] Arterial blood by [facility] Pulse oximetry Branch Procedures This patient has no known procedures. Encounters Start End Encounter Admission Attending Care Care Encounter Source Date/Time Date/Time Type Type Clinicians Facility Department ID 2023-03-23 2023-03-23 Nurse Nurse, [facility] [id number] [facility] 12:00:00 12:20:00 Visit Unknown, [id number] Bennett as FANI?BLEA [id number] Ne roxane [address] MEDICAL OFFICE BUILDING 2023-03-23 2023-03-23 Outpatient R ROXANA, [facility] [id number] Univers 12:00:00 12:00:00 ATTENDING ity of [facility] 2023-03-23 2023-03-23 Letter Abimael [facility] [id number] Univers 00:00:00 00:00:00 (Out) [employer] [id number] it y of [place] [id number] Bennett as FANI?BLEA [id number] [address] MEDICAL OFFICE BUILDING 2019-01-21 2019-01-17 Inpatient [facility] MED [address] [place] [address] 12:26:00 06:02:00 Results This patient has no known results.
[2023-03-23 14:19] LABS: Absolute Lymphocytes (CBC) 1.7 K/uL (0.7-4.9); Hematocrit 36.8 % (36.0-45.0); Lymphocytes % 34.3 % (15.3-44.8); MCV 92.2 fL (80-100); MPV 9.3 fL (7.6-11.3); Platelets 163 thou/uL (152-406); RBC Red Blood Cell Count 3.99 M/uL (3.86-4.86)
--- NOTE | 2023-03-23 14:25 | RAD REPORT ---
EXAM DESCRIPTION: Jerry Single View03/23/2023 1:39 pm CLINICAL HISTORY: CHEST PAIN COMPARISON: No comparisons TECHNIQUE: Portable AP view of the chest. FINDINGS: The lungs are clear. No pneumothorax or effusion. The cardiomediastinal contours are unre markable. IMPRESSION: No acute cardiopulmonary process.
[2023-03-23 14:36] LABS: Magnesium 1.9 mg/dL (1.6-2.4); Potassium 3.5 mEq/L (3.5-5.1); Troponin High Sensitivity 3.3 pg/mL (<58.9)
--- NOTE | 2023-03-23 14:58 | ER ---
Nurse's Notes [facility] Name: Boy Roque Age: 37 yrs Sex: Female : 1985 Arrival Date: 03/23/2023 Time: 12:52 Bed 20 Private MD: Diagnosis: Chest pain, unspecified Presentation: 03/23 13:05 Chief complaint: Patient states: she has been out of her blood pressure medications for ap3 approx 2 weeks (ramipril 5mg once a day). patient reports she has been having chest pain off and on for about a week now but they have increased over the last 2 days in frequency. Coronavirus screen: At this time, the client does not indicate any symptoms associated with coronavirus-19. Ebola Screen: No symptoms or risks identified at this time. Initial Sepsis Screen: Does the patient meet any 2 criteria? No. Patient's initial sepsis screen is negative. Does the patient have a suspected source of infection? No. Patient's initial sepsis screen is negative. Risk Assessment: Do you want to hurt yourself or someone else? Patient reports no desire to harm self or others. Onset of symptoms was March 15, 2023. 13:05 Method Of Arrival: Ambulatory ap3 13:05 Acuity: RIVAS 2 ap3 Triage Assessment: 13:08 General: Appears in no apparent distress. Behavior is calm, cooperative, appropriate ap3 for age. Pain: Complains of pain in chest Pain currently is 0 out of 10 on a pain scale. at worst was 7 out of 10 on a pain scale. Neuro: Level of Consciousness is awake, alert, obeys commands, Oriented to person, place, time, situation. 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 - Social history:: Smoking status: Patient reports the use of cigarette tobacco products, denies chronic smoking, but will smoke occasionally. Screenin:08 [facility] ED Fall Risk Assessment (Adult) History of falling in the last 3 months, ap3 including since admission No falls in past 3 months (0 pts). Abuse screen: Denies threats or abuse. Nutritional screening: No deficits noted. Tuberculosis screening: No symptoms or risk factors identified. Assessment: 13:37 Reassessment: Patient appears in no apparent distress at this time. Patient and/or db family updated on plan of care and expected duration. Pain level reassessed. Patient is alert, oriented x 3, equal unlabored respirations, skin warm/dry/pink. OUT OF BP MEDS X 2 WEEKS. CP ON AND OFF X 1 WEEK WORSENED OVER LAST 2 DAYS. General: Appears in no apparent distress. comfortable, Behavior is calm, cooperative. Neuro: Level of Consciousness is awake, alert, obeys commands, Oriented to person, place, time, situation. Cardiovascular: Reports chest pain. 14:15 Reassessment: Patient appears in no apparent distress at this time. Patient and/or db family updated on plan of care and expected duration. Pain level reassessed. Patient is alert, oriented x 3, equal unlabored respirations, skin warm/dry/pink. 15:20 Reassessment: Patient appears in no apparent distress at this time. Patient and/or db family updated on plan of care and expected duration. Pain level reassessed. Patient is alert, oriented x 3, equal unlabored respirations, skin warm/dry/pink. Patient states feeling better. Vital Signs: 13:05 BP 125 / 92; Pulse 62; Resp 18; Temp 98.1; Pulse Ox 100% ; Pain 0/10; ap3 13:38 BP 124 / 81; Pulse 50; Resp 16; Pulse Ox 100% on R/A; db 14:30 BP 117 / 78; Pulse 54; Resp 16; Pulse Ox 100% on R/A; db 15:00 BP 112 / 81; Pulse 60; Resp 16; Pulse Ox 100% on R/A; db 13:05 Pain Scale: Adult ap3 Vitals: 13:38 Cardiac Rhythm Assessment Sinus talha. db ED Course: 12:56 Patient arrived in ED. im 12:59 Chintan Chavez DO is Attending Physician. ms3 13:00 Lesley Moreira FNP-C is [facility]. kb 13:07 Triage completed. ap3 13:08 Arm band placed on left wrist. ap3 13:31 Janneth Butt, RN is Primary Nurse. db 13:41 XRAY Chest (1 view) In Process Unspecified. EDMS 13:49 Inserted saline lock: 22 gauge in right antecubital area, using aseptic technique. db Blood collected. 14:00 Patient has correct armband on for positive identification. Bed in low position. Call db light in reach. Side rails up X 1. Client placed on continuous cardiac and pulse oximetry monitoring. NIBP monitoring applied. Warm blanket given. 15:20 Provided Education on: DISCHARGE. db 15:20 No provider procedures requiring assistance completed. IV discontinued, intact, db bleeding controlled, No redness/swelling at site. Administered Medications: No medications were administered Medication: 15:20 VIS not applicable for this client. db Outcome: 14:58 Discharge ordered by . jodi 15:20 Discharged to home ambulatory, with friend. db 15:20 Condition: stable 15:20 Discharge instructions given to patient, Instructed on discharge instructions, follow up and referral plans. 15:27 Patient left the ED. db Signatures: Dispatcher [employer] EDMS Lesley Moreira, DOCUMENT IMAGE TECHNICIAN-C DOCUMENT IMAGE TECHNICIAN-Radha Galvin, RN RN ap3 Chintan Chavez DO DO ms3 Janneth Butt, ANNALEE RN db Anika Gresham
--- NOTE | 2023-03-23 14:58 | EDPHYS ---
Physician Documentation [facility] Name: Boy Roque Age: 37 yrs Sex: Female : 1985 Arrival Date: 03/23/2023 Time: 12:52 Bed 20 Private MD: ED Physician Chintan Chavez HPI: 03/23 14:59 This 37 yrs old Black Female presents to ER via Ambulatory with complaints of Flank kb Pain, High Blood Pressure. 14:59 The patient or guardian reports chest pain that is located primarily in the chest kb diffusely. The pain does not radiate. Associated signs and symptoms: The patient has no apparent associated signs or symptoms. The chest pain is described as sharp. Duration: The patient or guardian reports multiple episodes, that are intermittent, with no pattern. Modifying factors: The symptoms are alleviated by nothing. the symptoms are aggravated by emotionally stressful situations. Severity of pain: At its worst the pain was moderate in the emergency department the pain has improved. The patient has not experienced similar symptoms in the past. The patient has not recently seen a physician. Pt reports intermittent chest pain that started 2 weeks ago. States she has been out of her ramapril for 2 weeks as well. Denies shortness of breath, nausea, vomiting. States she has been under a lot of stress at work so she believes that is the cause. . 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 - Social history:: Smoking status: Patient reports the use of cigarette tobacco products, denies chronic smoking, but will smoke occasionally. ROS: 15:01 Constitutional: Negative for fever, chills, and weight loss. kb 15:01 Cardiovascular: Positive for chest pain. 15:01 All other systems are negative. Exam: 15:01 Constitutional: This is a well developed, well nourished patient who is awake, alert, kb and in no acute distress. Head/Face: Normocephalic, atraumatic. ENT: Moist Mucous membranes Cardiovascular: Regular rate Respiratory: Respirations even and unlabored. No increased work of breathing. Talking in full sentences Abdomen/GI: Soft, non-tender. No distention Skin: Warm, dry with normal turgor. Normal color. MS/ Extremity: Pulses equal, no cyanosis. Neurovascular intact. Full, normal range of motion. Neuro: Awake and alert, GCS 15, oriented to person, place, time, and situation. Moves all extremities. Normal gait. Vital Signs: 13:05 BP 125 / 92; Pulse 62; Resp 18; Temp 98.1; Pulse Ox 100% ; Pain 0/10; ap3 13:38 BP 124 / 81; Pulse 50; Resp 16; Pulse Ox 100% on R/A; db 14:30 BP 117 / 78; Pulse 54; Resp 16; Pulse Ox 100% on R/A; db 15:00 BP 112 / 81; Pulse 60; Resp 16; Pulse Ox 100% on R/A; db 13:05 Pain Scale: Adult ap3 MDM: 13:00 Patient medically screened. kb 15:00 Differential diagnosis: abnormal EKG, acute myocardial infarction, anxiety, coronary kb artery disease chest wall pain. Data reviewed: vital signs, nurses notes. Consideration of Admission/Observation Escalation of care including admission/observation considered. admission considered for chest pain. HEART score 1. Pt has follow up appt scheduled for next week. Educated on return precautions. Counseling: I had a detailed discussion with the patient and/or guardian regarding the historical points, exam findings, and any diagnostic results supporting the discharge/admit diagnosis, lab results, radiology results, the need for outpatient follow up, a family practitioner, to return to the emergency department if symptoms worsen or persist or if there are any questions or concerns that arise at home. 03/23 13:04 Order name: Basic Metabolic Panel; Complete Time: 14:36 kb 03/23 13:04 Order name: CBC with Diff; Complete Time: 14:33 kb 03/23 13:04 Order name: Magnesium; Complete Time: 14:36 kb 03/23 13:04 Order name: Troponin HS; Complete Time: 14:36 kb 03/23 13:04 Order name: XRAY Chest (1 view); Complete Time: 14:33 kb 03/23 13:04 Order name: EKG; Complete Time: 13:05 kb 03/23 13:04 Order name: Cardiac monitoring; Complete Time: 13:59 kb 03/23 13:04 Order name: EKG - Nurse/Tech; Complete Time: 13:58 kb 03/23 13:04 Order name: IV Saline Lock; Complete Time: 13:59 kb 03/23 13:04 Order name: Labs collected and sent; Complete Time: 13:59 kb 03/23 13:04 Order name: O2 Per Protocol; Complete Time: 13:59 kb 03/23 13:04 Order name: O2 Sat Monitoring; Complete Time: 13:59 kb Administered Medications: No medications were administered Disposition: 20:53 Co-signature as Attending Physician, Chintan Chavez DO I was immediately available on-site ms3 in the Emergency Department for consultation in the care of the patient. Disposition Summary: 03/23/23 14:58 Discharge Ordered Location: Home kb Condition: Stable kb Diagnosis - Chest pain, unspecified kb Followup: kb - With: Emergency Department - When: As needed - Reason: Worsening of condition Followup: kb - With: Private Physician - When: 2 - 3 days - Reason: Recheck today's complaints, Continuance of care, Re-evaluation by your physician Discharge Instructions: - Discharge Summary Sheet kb - Nonspecific Chest Pain, Adult, Zxco-hc-[id number] kb Forms: - Work release form kb - Medication Reconciliation Form kb - Thank You Letter kb - Antibiotic Education kb - Prescription Opioid Use kb - Patient Portal Instructions kb - Leadership Thank You Letter kb Signatures: Dispatcher [employer] Lesley Freeman, ZULEMAC BENITO-Radha Galvin RN RN yara3 Chintan Chavez DO DO ms3
[2023-03-23 15:52] VITALS: TEMP 98.1; O2SAT 100
[2023-03-23 15:55] VITALS: BP 112/81
--- NOTE | 2023-03-24 13:03 | EKG ---
Test Date: 2023-03-23 Test Time: 14:36:30 Mobility Scooter Repairer: DOMINIQUE MEASUREMENT RESULTS: Intervals: Rate: 54 GA: 136 QRSD: 88 QT: 452 QTc: 428 [place]: P: 69 GA: 136 QRS: 84 T: 69 INTERPRETIVE STATEMENTS: Sinus bradycardia with sinus arrhythmia Otherwise normal ECG Compared to ECG 03/23/2023 13:46:56 ST (T wave) deviation no longer present Myocardial infarct finding no longer present Electronically Signed On 03-24-23 13:00:39 CDT by Kurt Arroyo
--- NOTE | 2023-03-28 19:14 | EKG ---
Test Date: 2023-03-23 Test Time: 13:46:56 Pump Erector Helper: DOMINIQUE MEASUREMENT RESULTS: Intervals: Rate: 52 [place]: 122 QRSD: 88 QT: 442 QTc: 411 [place]: P: 48 [place]: 122 QRS: 84 T: 66 INTERPRETIVE STATEMENTS: Age and gender specific ECG analysis Sinus bradycardia ST elevation, consider anterior injury or acute infarct ACUTE GA Abnormal ECG No previous ECG available for comparison Electronically Signed On 03-28-23 19:08:21 CDT by Kurt Arroyo
== END 2023-03-23 15:27 | disposition home or self-care (01) ==
LOC: ER 12:52
DX: R07.89 Other chest pain (principal); I10 Essential (primary) hypertension; F17.210 Nicotine dependence, cigarettes, uncomplicated
CPT/HCPCS: 36415; 71045; 80048; 83735; 84484; 85025; 93005; 99284